=== PATIENT | male | born 1965 | race African-American/Black ===

== ENCOUNTER 2018-02-15 17:59 | Emergency (ER) | payer SELFPAY ==
[~2018-02-15] VITALS: Ht 180.3 cm; Wt 75.0 kg
[2018-02-15 18:19] VITALS: BP 140/80
== END 2018-02-15 23:23 | disposition left against medical advice (07) ==
LOC: ER 17:59
DX: Z53.21 Procedure and treatment not carried out due to patient leaving prior to being seen by health care provider (principal)